=== PATIENT | male | born 1990 | race African-American/Black ===

== ENCOUNTER 2021-01-26 23:35 | Emergency (ER) | payer BC ==
[~2021-01-26] VITALS: Ht 193 cm; Wt 97.7 kg
[2021-01-26 23:47] VITALS: TEMP 97.9
[2021-01-27] MEDS ORDERED: PREDNISONE20 MG PO (00:29)
[2021-01-27] MEDS ORDERED: FLEXERIL 1010 MG/TAB PO (00:29)
[2021-01-27 00:43] VITALS: BP 126/73; PULSE 60
== END 2021-01-27 00:43 | disposition home or self-care (01) ==
LOC: COL.ER 23:35
DX: M62.830 Muscle spasm of back (principal); F17.210 Nicotine dependence, cigarettes, uncomplicated; Y00.XXXA Assault by blunt object, initial encounter
CPT/HCPCS: J7512